=== PATIENT | female | born 1940 | race Caucasian/White ===

== ENCOUNTER → 2017-03-30 | Outpatient (CLI) | payer OTHER | END | disposition home or self-care (01) | LOC: CFH 12:47 | DX: I08.3 Combined rheumatic disorders of mitral, aortic and tricuspid valves (principal); I10 Essential (primary) hypertension; E78.5 Hyperlipidemia, unspecified | CPT/HCPCS: 93306 ==

== ENCOUNTER 2017-11-03 09:58 | Day surgery (SDC) | payer OTHER ==
[~2017-11-03] VITALS: Ht 172.7 cm; Wt 91.5 kg
[2017-11-03] MEDS ORDERED: LACTATED RINGERS 1,000 ML IV SCH (10:37)
[2017-11-03] MEDS ORDERED: ESOM5SUS PO (10:53)
[2017-11-03] MEDS ORDERED: AMLO10TA2 PO (10:53)
[2017-11-03] MEDS ORDERED: PLAN450T PO (10:53)
[2017-11-03] MEDS ORDERED: HYDR25TA6 PO (10:53)
[2017-11-03] MEDS ORDERED: POTA99TA24 PO (10:53)
[2017-11-03] MEDS ORDERED: CALC-451 PO (10:53)
[2017-11-03] MEDS ORDERED: MULT-658 PO (10:53)
[2017-11-03] MEDS ORDERED: MELO7.5T31 PO (10:53)
[2017-11-03] MEDS ORDERED: PRAV20TA2 PO (10:53)
[2017-11-03] MEDS ORDERED: ASPI-515 PO (10:53)
[2017-11-03 11:02] VITALS: BP 137/83
[2017-11-03] MEDS ORDERED: MIDAZOLAM 1 MG/ML, 2ML ONE ×2 (11:06)
[2017-11-03] MEDS ORDERED: LIDOCAINE-MPF 2% ,5ML ONE ×2 (11:18)
[2017-11-03] MEDS ORDERED: PROPOFOL 10 MG/ML, 20ML ONE (11:18)
[2017-11-03] MEDS ORDERED: LIDOCAINE GEL 2%, 5ML ONE (11:19)
[2017-11-03] MEDS ORDERED: PLEASE ENTER HEIGHT AND WEIGHT MC SCH (11:30)
[2017-11-03] MEDS ORDERED: CEFAZOLIN 1,000 MG ONE ×3 (11:34)
[2017-11-03 11:42] LABS: ALBUMIN 3.8 g/dL (3.4-5.0); ANION GAP 7 mmol/L (5-15); CALCIUM 9.2 mg/dL (8.5-10.1); CHLORIDE 111 mmol/L (98-107)
[2017-11-03 11:46] LABS: ALANINE AMINOTRANSFERASE 19 U/L (12-78); ALKALINE PHOSPHATASE 85 U/L (45-117); BILIRUBIN,TOTAL 0.6 mg/dL (0.2-1.0); CREATININE 0.87 mg/dL (0.55-1.02); TOTAL PROTEIN 7.3 g/dL (6.4-8.2)
[2017-11-03] MEDS ORDERED: DEXAMETHASONE 4 MG/ML, 1ML ONE ×2 (11:53)
[2017-11-03] MEDS ORDERED: ONDANSETRON 2MG/ML, 2ML ONE (11:54)
[2017-11-03] MEDS ORDERED: ACETAMINOPHEN 325 MG TABLET PO PRN (12:00)
[2017-11-03] MEDS ORDERED: ONDANSETRON 2MG/ML, 2ML IVPush PRN (12:00)
[2017-11-03] MEDS ORDERED: FENTANYL PF 100 MCG/2ML IV PRN (12:00)
[2017-11-03] MEDS ORDERED: morphine SULFATE 10 MG/ML, 1ML IV PRN (12:00)
[2017-11-03] MEDS ORDERED: OXYcodone 5 MG/5 ML ORAL.SOL UDC PO PRN (12:00)
[2017-11-03] MEDS ORDERED: HYDROcodone/APAP 7.5-325MG/15ML UDC PO PRN (12:00)
[2017-11-03] MEDS ORDERED: MEPERIDINE/PF 25MG/0.5ML IVPush PRN (12:00)
[2017-11-03] MEDS ORDERED: HYDROcodone/APAP 7.5-325MG/15ML UDC ONE (12:22)
== END 2017-11-03 14:35 ==
LOC: OUT 09:58
PROVIDERS: ATTEND Orthopaedic Surgery Foot and Ankle Surgery
DX: S92.351A Displaced fracture of fifth metatarsal bone, right foot, initial encounter for closed fracture (principal); J45.909 Unspecified asthma, uncomplicated; K21.9 Gastro-esophageal reflux disease without esophagitis; I10 Essential (primary) hypertension; F15.90 Other stimulant use, unspecified, uncomplicated; Z87.39 Personal history of other diseases of the musculoskeletal system and connective tissue; Z72.89 Other problems related to lifestyle
CPT/HCPCS: 28485; 36415; 73620; 76000; 80053; 93005; C1713; J0690; J1100; J2250; J2405; J2704; J3490; J7120